=== PATIENT | female | born 1975 ===

== ENCOUNTER 2019-09-17 12:30 | Inpatient (IN) | payer OTHER ==
[~2019-09-17] VITALS: Ht 162.6 cm; Wt 3.6 kg
[2019-09-29] MEDS ORDERED: LEVOTHYROXINE25 MCG PO (08:26)
[2019-09-29] MEDS ORDERED: PRENATAL PLUS1 EAC1 PO (08:27)
[2019-09-29] MEDS ORDERED: OCUVITE LUTEIN1 EAC2 PO (08:28)
[2019-09-29] MEDS ORDERED: FOLIC ACID0.8 M1 PO (08:29)
== END 2019-10-01 15:32 | disposition home or self-care (01) | DRG 788 ==
LOC: OB/GYN 09-29 09:03 → LDR 09-29 09:03 → O/R 09-29 13:10 → OB/GYN 09-29 13:18 → LDR 10-04 12:30
PROVIDERS: ADMIT Obstetrics & Gynecology; ATTEND Obstetrics & Gynecology
PROC: 4A1HXFZ Monitoring of Products of Conception, Cardiac Rhythm, External Approach (ICD-10-PCS; 2019-09-29)
PROC: 3E033VJ Introduction of Other Hormone into Peripheral Vein, Percutaneous Approach (ICD-10-PCS; 2019-09-29)
PROC: 10D00Z1 Extraction of Products of Conception, Low, Open Approach (ICD-10-PCS; principal; 2019-09-29 09:45)
DX: O36.63X0 Maternal care for excessive fetal growth, third trimester, not applicable or unspecified (principal); Z3A.39 39 weeks gestation of pregnancy; Z37.0 Single live birth; Z20.828 Contact with and (suspected) exposure to other viral communicable diseases